=== PATIENT | female | born 1995 | race Caucasian/White ===

== ENCOUNTER 2024-04-05 16:13 | Emergency (ER) | payer MEDICAID ==
[~2024-04-05] VITALS: Ht 170.2 cm; Wt 79.6 kg
[2024-04-05 16:14] VITALS: BP 103/67; PULSE 89; RESP 16; TEMP 98.6; O2SAT 96
[2024-04-05] MEDS: CefTRIAXone/D5W-Rocephin 1gm 50 ML IV ONE (17:44)
[2024-04-05 17:49] LABS: BASOPHILS % (AUTO) 0.5 % (0-1); EOSINOPHILS # (AUTO) 0.1 X10'3 (0-0.9); HEMATOCRIT 35.9 % (35.0-45.0); HEMOGLOBIN 11.8 g/dl (12.0-16.0); LYMPHOCYTES # (AUTO) 1.6 X10'3 (1.1-4.8); LYMPHOCYTES % (AUTO) 24.9 % (21-51); MEAN CORPUSCULAR HEMOGLOBIN 29.7 PG (27.0-31.0); MEAN CORPUSCULAR VOLUME 89.8 FL (78-98); MEAN PLATELET VOLUME 9.3 FL (7.4-10.4); MONOCYTES # (AUTO) 0.4 X10'3 (0-0.9); MONOCYTES % (AUTO) 6.6 % (2-12); NEUTROPHILS # (AUTO) 4.2 X10'3 (1.8-7.7); PLATELET COUNT 144 X10'3 (140-440); RED BLOOD COUNT 3.99 X10'6 (4.20-5.60); RED CELL DISTRIBUTION WIDTH 13.2 % (11.5-14.5); WHITE BLOOD COUNT 6.3 X10'3 (4.5-11.0)
[2024-04-05 17:59] LABS: APTT 28 SECONDS (22-32); PROTHROMBIN TIME 10.3 SECONDS (9.0-12.0)
[2024-04-05 18:03] LABS: ALANINE AMINOTRANSFERASE 42 U/L (12-78); ALBUMIN 3.5 G/DL (3.4-5.0); ALBUMIN/GLOBULIN RATIO 0.9 (1.1-1.5); ALKALINE PHOSPHATASE 79 IU/L (46-116); ANION GAP 9 (8-16); ASPARTATE AMINO TRANSFERASE 19 U/L (10-37); BILIRUBIN,TOTAL 0.4 MG/DL (0.1-1.0); BLOOD UREA NITROGEN 7 MG/DL (7-18); BUN/CREATININE RATIO 10.8 (10.0-20.0); C-REACTIVE PROTEIN 3.83 MG/DL (0.0-0.5); CALCIUM 9.4 MG/DL (8.5-10.1); CHLORIDE 104 MMOL/L (99-107); CREATININE 0.65 MG/DL (0.40-0.90); GLUCOSE 96 MG/DL (70-104); POTASSIUM 3.2 MMOL/L (3.5-5.1); SODIUM 140 MMOL/L (135-145); TOTAL CARBON DIOXIDE 27.5 MMOL/L (24-32); TOTAL PROTEIN 7.6 G/DL (6.4-8.2); eCRCL 125 ML/MIN; eGFR > 90 ML/MIN
[2024-04-05] MEDS ORDERED: CLIN300C54 PO (18:05)
[2024-04-05 18:07] LABS: HCG SERUM QL NEGATIVE
[2024-04-05] MEDS: clindamycin 300mg/D5W 50mL 50 ML IV STA (18:24)
[2024-04-05] MEDS ORDERED: clindamycin 300mg/D5W 50mL 50 ML IV SCH (20:00)
== END 2024-04-05 18:24 | disposition left against medical advice (07) ==
LOC: ER 16:14
DX: M27.2 Inflammatory conditions of jaws (principal)
CPT/HCPCS: 36415; 80053; 83605; 84145; 84703; 85025; 85610; 85651; 85730; 86140; 87040; 96365; 99284; J0696